=== PATIENT | female | born 1950 | race Caucasian/White ===

== ENCOUNTER 2019-04-26 18:32 | Inpatient (IN) | payer MEDICARE, MEDICAID ==
[~2019-04-26] VITALS: Ht 160 cm; Wt 101.2 kg
[2019-04-26 20:55] LABS: BASOPHILS % 0.8 % (0.0-2.0); EOSINOPHILS % 2.7 % (0.0-5.0); HEMATOCRIT. 37.8 % (36.0-48.0); HEMOGLOBIN. 12.8 g/dL (12.0-16.0); LYMPHOCYTES % 22.8 % (20.0-50.0); MEAN CORPUSCULAR HEMOGLOBIN 30.1 pg (28.0-32.0); MONOCYTES % 5.5 % (2.0-8.0); NEUTROPHILS % 68.2 % (40.0-76.0); RED BLOOD CELL COUNT 4.25 mill/uL (4.2-5.4); RED CELL DISTRIBUTION WIDTH 14.6 % (11.6-14.6)
[2019-04-26 21:12] LABS: MEAN PLATELET VOLUME 8.9 fl (7.4-10.4); PLATELET 485 x1000/uL (130-400)
[2019-04-26 21:44] LABS: CHLORIDE 111 mEq/L (98-107)
[2019-04-26 22:39] VITALS: BP 159/52
[2019-04-26] MEDS ORDERED: AMLO10TA80 PO (23:08)
[2019-04-26] MEDS ORDERED: BUME1TAB8 PO (23:08)
[2019-04-26] MEDS ORDERED: CLOP75TA33 PO (23:08)
[2019-04-26] MEDS ORDERED: LINA5TAB PO (23:08)
[2019-04-26] MEDS ORDERED: DEXTROSE 50% WATER 50ML SYRINGE IV PRN (23:30)
[2019-04-27] VITALS: BP 103/58
[2019-04-27 04:00] VITALS: BP 136/57
[2019-04-27] MEDS: BLOOD SUGAR DIAGNOSTIC STRIP TEST SCH ×4 (06:28→22:18)
[2019-04-27] MEDS: INSULIN LISPRO 100 UNITS/ML SUBCUT SCH ×4 (06:28→22:18)
[2019-04-27 06:40] LABS: PROTHROMBIN TIME 10.3 sec (9.6-11.0)
[2019-04-27 06:50] LABS: EOSINOPHILS % 3.9 % (0.0-5.0); HEMATOCRIT. 35.1 % (36.0-48.0); HEMOGLOBIN. 11.6 g/dL (12.0-16.0); LYMPHOCYTES % 25.7 % (20.0-50.0); MEAN CORPUSCULAR HEMOGLOBIN 29.2 pg (28.0-32.0); MEAN CORPUSCULAR VOLUME 88.1 fL (81.0-99.0); MEAN PLATELET VOLUME 7.8 fl (7.4-10.4); MONOCYTES % 9.1 % (2.0-8.0); NEUTROPHILS % 60.3 % (40.0-76.0); PLATELET 339 x1000/uL (130-400); RED BLOOD CELL COUNT 3.98 mill/uL (4.2-5.4); RED CELL DISTRIBUTION WIDTH 14.3 % (11.6-14.6)
[2019-04-27 08:00] VITALS: BP 152/61
[2019-04-27] MEDS: AMLODIPINE 10MG TABLET PO SCH (09:03)
[2019-04-27] MEDS: LINAGLIPTIN 5MG TABLET PO SCH (09:03)
[2019-04-27] MEDS: BUMETANIDE 1MG TABLET PO SCH (09:03)
[2019-04-27 12:00] VITALS: BP 117/50
[2019-04-27] MEDS: LEVOFLOXACIN 500MG PREMIX 100 ML IV SCH (13:25)
[2019-04-27 16:00] VITALS: BP 124/41
[2019-04-27] MEDS ORDERED: LACTULOSE 20G/30ML UDC PO PRN (16:00)
[2019-04-27] MEDS ORDERED: LORAZEPAM 2MG/ML CPJ IV PRN (16:00)
[2019-04-27] MEDS ORDERED: HYDRALAZINE 20MG/ML VIAL IV PRN (16:00)
[2019-04-27] MEDS ORDERED: ONDANSETRON HCL 4MG/2ML INJ IV PRN (16:00)
[2019-04-27] MEDS ORDERED: DIPHENHYDRAMINE 50MG/ML VIAL IV PRN (16:00)
[2019-04-27 16:31] LABS: BG BASE EXCESS -5.4 mmol/L (-2.0-2.0); BG CARBOXYHEMOGLOBIN 0.1 % (0.5-1.5); BG DEOXYHEMOGLOBIN 4.7 % (0.0-5.0); BG FRACTION INSPIRED OXYGEN 21; BG HCO3 ACT 18.8 mmol/L (22.0-26.0); BG METHEMOGLOBIN 0.2 % (0.0-1.5); BG OXYGEN SATURATION 95.3 % (92.0-98.5); BG PCO2 32.5 mmHg (35.0-45.0); BG PH 7.379 (7.350-7.450); BG PO2 79.1 mmHg (75.0-100.0); BG SAMPLE SITE RIGHT RADIAL; BG TOTAL HEMOGLOBIN 12.3 g/dL (12.0-18.0); BG VENT MODE ROOM AIR
[2019-04-27 20:00] VITALS: BP 128/42
[2019-04-28] VITALS (35 sets, daily range): BP systolic 107–169; BP diastolic 36–73
[2019-04-28] MEDS: DEXT 5%/0.45% NACL 1000ML 1,000 ML IV SCH ×2 (00:58→17:23)
[2019-04-28 06:55] LABS: HEMATOCRIT 33.7 % (36.0-48.0); HEMOGLOBIN 11.4 g/dL (12.0-16.0); MEAN CORPUSCULAR HEMOGLOBIN 29.7 pg (28.0-32.0); MEAN CORPUSCULAR VOLUME 88.2 fL (81.0-99.0); PLATELET 305 x1000/uL (130-400); RED BLOOD CELL COUNT 3.82 mill/uL (4.2-5.4); RED CELL DISTRIBUTION WIDTH 14.2 % (11.6-14.6)
[2019-04-28] MEDS: INSULIN LISPRO 100 UNITS/ML SUBCUT SCH ×4 (07:00→20:27)
[2019-04-28] MEDS: BLOOD SUGAR DIAGNOSTIC STRIP TEST SCH ×5 (07:00→20:25)
[2019-04-28 07:11] LABS: T4 FREE 1.25 ng/dL (0.76-1.46)
[2019-04-28] MEDS ORDERED: TALC 3 GM VIAL IX SCH ×2 (08:00)
[2019-04-28] MEDS: FAMOTIDINE 20MG/2ML VIAL IV SCH (08:57)
[2019-04-28] MEDS: LINAGLIPTIN 5MG TABLET PO SCH (08:58)
[2019-04-28] MEDS: BUMETANIDE 1MG TABLET PO SCH (08:58)
[2019-04-28] MEDS: AMLODIPINE 10MG TABLET PO SCH (08:58)
[2019-04-28] MEDS ORDERED: TETRACAINE/BENZOCAINE/BUTAMBEN 20 GM SPRAY MM ONE (09:51)
[2019-04-28] MEDS ORDERED: BUPIVACAINE/EPINEPH/PF 0.25%/0.0005 10ML ONE (09:52)
[2019-04-28] MEDS ORDERED: BACITRACIN 50,000 UNITS/VIAL ONE ×2 (09:52→10:24)
[2019-04-28] MEDS ORDERED: NORMAL SALINE 0.9% 10 ML SYR ONE (09:52)
[2019-04-28 10:01] LABS: CLARITY URINE CLEAR (CLEAR); COLOR URINE YELLOW (YELLOW); KETONES URINE NEGATIVE (NEGATIVE); LEUKOCYTE ESTERASE URINE NEGATIVE (NEGATIVE); NITRITE URINE NEGATIVE (NEGATIVE); OCCULT BLOOD URINE NEGATIVE (NEGATIVE); PH URINE 5.5 (4.5-8.0); PROTEIN URINE NEGATIVE (NEGATIVE); SPECIFIC GRAVITY URINE 1.012 (1.005-1.030); UROBILINOGEN URINE 0.2 E.U./dL (0.2-1.0)
[2019-04-28] MEDS ORDERED: SKIN ADHESIVE 0.7 GM EA TOP ONE (10:20)
[2019-04-28] MEDS ORDERED: BACITRACIN 15GM TUBE TOP ONE (10:25)
[2019-04-28] MEDS ORDERED: PROPOFOL 200MG/20ML VIAL IV ONE (11:37)
[2019-04-28] MEDS ORDERED: ROCURONIUM BROMIDE 10MG/ML VIAL 5ML IV ONE (11:37)
[2019-04-28] MEDS ORDERED: MIDAZOLAM HCL 2 MG/2 ML VIAL ONE (11:37)
[2019-04-28] MEDS ORDERED: FENTANYL CITRATE/PF 50MCG/ML 2ML VIAL ONE (11:37)
[2019-04-28] MEDS ORDERED: ONDANSETRON HCL 4MG/2ML INJ ONE (11:38)
[2019-04-28] MEDS ORDERED: LIDOCAINE HCL/PF 1% 10 MG/ML 5ML VIAL ONE (11:38)
[2019-04-28] MEDS ORDERED: METOCLOPRAMIDE HCL 10MG/2ML VIAL ONE (11:38)
[2019-04-28] MEDS ORDERED: SUCCINYLCHOLINE CHLORIDE 200MG/10ML IV ONE (11:38)
[2019-04-28] MEDS ORDERED: GLYCOPYRROLATE 0.2 MG/ML 2ML VIAL ONE (13:43)
[2019-04-28] MEDS: MAGNESIUM HYDROXIDE 400MG/5ML 30ML UDC PO SCH ×3 (14:00→22:42)
[2019-04-28] MEDS ORDERED: ONDANSETRON HCL 4MG/2ML INJ IV PRN (14:30)
[2019-04-28] MEDS ORDERED: FENTANYL CITRATE/PF 50MCG/ML 2ML VIAL IV PRN (14:30)
[2019-04-28] MEDS ORDERED: SODIUM CHLORIDE 0.9% 500 ML IV PRN (14:33)
[2019-04-28] MEDS ORDERED: ACETAMINOPHEN 325MG TABLET PO PRN (14:45)
[2019-04-28] MEDS ORDERED: OXYCODONE HCL/ACETAMINOPHEN 5/325MG TABLET PO PRN ×2 (14:45)
[2019-04-28] MEDS: HYDROMORPHONE HCL/PF 2MG/ML CPJ IV PRN ×2 (15:08→15:42)
[2019-04-28 15:23] LABS: BG BASE EXCESS -8.2 mmol/L (-2.0-2.0); BG CARBOXYHEMOGLOBIN 0.3 % (0.5-1.5); BG DEOXYHEMOGLOBIN 1.4 % (0.0-5.0); BG FRACTION INSPIRED OXYGEN 85; BG HCO3 ACT 17.9 mmol/L (22.0-26.0); BG METHEMOGLOBIN 0.3 % (0.0-1.5); BG OXYGEN SATURATION 98.6 % (92.0-98.5); BG PCO2 38.7 mmHg (35.0-45.0); BG PH 7.283 (7.350-7.450); BG PO2 167.7 mmHg (75.0-100.0); BG SAMPLE SITE A-LINE; BG TOTAL HEMOGLOBIN 11.2 g/dL (12.0-18.0); BG VENT MODE MASK - SIMPLE
[2019-04-28] MEDS ORDERED: CEFAZOLIN 1000MG PREMIX 50 ML IV SCH (16:00)
[2019-04-28] MEDS: DOCUSATE SODIUM 100MG CAPSULE PO SCH (16:54)
[2019-04-28] MEDS ORDERED: SODIUM BICARBONATE 8.4% 1 MEQ/ML 50ML SYR IV NR ×2 (17:07→19:00)
[2019-04-28] MEDS: IPRATROPIUM/ALBUTEROL 0.5-3(2.5)MG/3ML NEB HHN SCH ×2 (17:12→21:39)
[2019-04-28 18:47] LABS: BG BASE EXCESS -8.5 mmol/L (-2.0-2.0); BG CARBOXYHEMOGLOBIN 0.3 % (0.5-1.5); BG DEOXYHEMOGLOBIN 3.9 % (0.0-5.0); BG FRACTION INSPIRED OXYGEN 28; BG HCO3 ACT 16.8 mmol/L (22.0-26.0); BG METHEMOGLOBIN 0.3 % (0.0-1.5); BG OXYGEN SATURATION 96.1 % (92.0-98.5); BG OXYHEMOGLOBIN 95.5 % (94.0-97.0); BG PH 7.312 (7.350-7.450); BG PO2 89.9 mmHg (75.0-100.0); BG SAMPLE SITE A-LINE; BG TOTAL HEMOGLOBIN 10.8 g/dL (12.0-18.0); BG VENT MODE NASAL CANNULA
[2019-04-28] MEDS: CEFAZOLIN 1000MG PREMIX 50 ML IV SCH (20:28)
[2019-04-29] VITALS (70 sets, daily range): BP systolic 121–156; BP diastolic 43–96
[2019-04-29] MEDS: IPRATROPIUM/ALBUTEROL 0.5-3(2.5)MG/3ML NEB HHN SCH ×6 (00:09→20:43)
[2019-04-29] MEDS: MORPHINE SULFATE 2 MG/ML CPJ (NOT FOR IM USE) IV PRN ×4 (01:57→14:28)
[2019-04-29] MEDS: MAGNESIUM HYDROXIDE 400MG/5ML 30ML UDC PO SCH ×4 (02:48→13:58)
[2019-04-29] MEDS: CEFAZOLIN 1000MG PREMIX 50 ML IV SCH ×3 (03:21→19:53)
[2019-04-29 06:38] LABS: BASOPHILS % 0.2 % (0.0-2.0); HEMATOCRIT. 31.3 % (36.0-48.0); HEMOGLOBIN. 10.3 g/dL (12.0-16.0); MEAN CORPUSCULAR HEMOGLOBIN 29.3 pg (28.0-32.0); MEAN CORPUSCULAR VOLUME 88.9 fL (81.0-99.0); MEAN PLATELET VOLUME 8.2 fl (7.4-10.4); MONOCYTES % 7.6 % (2.0-8.0); NEUTROPHILS % 84.2 % (40.0-76.0); PLATELET 344 x1000/uL (130-400); RED BLOOD CELL COUNT 3.52 mill/uL (4.2-5.4); RED CELL DISTRIBUTION WIDTH 14.3 % (11.6-14.6)
[2019-04-29] MEDS: BLOOD SUGAR DIAGNOSTIC STRIP TEST SCH ×4 (08:19→21:16)
[2019-04-29] MEDS: DEXT 5%/0.45% NACL 1000ML 1,000 ML IV SCH (08:31)
[2019-04-29] MEDS: DOCUSATE SODIUM 100MG CAPSULE PO SCH ×2 (08:31→17:51)
[2019-04-29] MEDS: INSULIN LISPRO 100 UNITS/ML SUBCUT SCH ×4 (08:31→21:19)
[2019-04-29] MEDS: AMLODIPINE 10MG TABLET PO SCH (08:31)
[2019-04-29] MEDS: FAMOTIDINE 20MG/2ML VIAL IV SCH (08:31)
[2019-04-29] MEDS: LINAGLIPTIN 5MG TABLET PO SCH (08:31)
[2019-04-29] MEDS: ONDANSETRON HCL 4MG/2ML INJ IV PRN ×2 (08:45→13:58)
[2019-04-29] MEDS: BUMETANIDE 1MG TABLET PO SCH (10:31)
[2019-04-29] MEDS: LEVOFLOXACIN 500MG PREMIX 100 ML IV SCH (12:18)
[2019-04-30] VITALS (48 sets, daily range): BP systolic 90–158; BP diastolic 41–77
[2019-04-30] MEDS: IPRATROPIUM/ALBUTEROL 0.5-3(2.5)MG/3ML NEB HHN SCH ×6 (00:32→20:06)
[2019-04-30] MEDS: DEXT 5%/0.45% NACL 1000ML 1,000 ML IV SCH ×2 (02:00→18:09)
[2019-04-30] MEDS: MORPHINE SULFATE 2 MG/ML CPJ (NOT FOR IM USE) IV PRN ×2 (03:43→15:30)
[2019-04-30] MEDS: CEFAZOLIN 1000MG PREMIX 50 ML IV SCH ×3 (03:43→20:15)
[2019-04-30] MEDS: BLOOD SUGAR DIAGNOSTIC STRIP TEST SCH ×4 (08:12→21:47)
[2019-04-30] MEDS: LINAGLIPTIN 5MG TABLET PO SCH (08:32)
[2019-04-30] MEDS: FAMOTIDINE 20MG/2ML VIAL IV SCH (08:32)
[2019-04-30] MEDS: AMLODIPINE 10MG TABLET PO SCH (08:35)
[2019-04-30] MEDS: BUMETANIDE 1MG TABLET PO SCH (08:35)
[2019-04-30] MEDS: DOCUSATE SODIUM 100MG CAPSULE PO SCH ×2 (08:35→16:09)
[2019-04-30] MEDS: INSULIN LISPRO 100 UNITS/ML SUBCUT SCH ×4 (08:35→21:47)
[2019-04-30 10:56] LABS: HEMATOCRIT. 22.5 % (36.0-48.0); HEMOGLOBIN. 7.5 g/dL (12.0-16.0); MEAN CORPUSCULAR HEMOGLOBIN 29.3 pg (28.0-32.0); PLATELET 257 x1000/uL (130-400); RED BLOOD CELL COUNT 2.56 mill/uL (4.2-5.4); RED CELL DISTRIBUTION WIDTH 14.1 % (11.6-14.6)
[2019-04-30 11:39] LABS: PLATELET ESTIMATE NORMAL
[2019-04-30 13:17] LABS: BASOPHILS % 0.1 % (0.0-2.0); EOSINOPHILS % 0.2 % (0.0-5.0); HEMATOCRIT. 23.6 % (36.0-48.0); HEMOGLOBIN. 7.8 g/dL (12.0-16.0); LYMPHOCYTES % 8.9 % (20.0-50.0); MEAN CORPUSCULAR HEMOGLOBIN 29.3 pg (28.0-32.0); MEAN CORPUSCULAR VOLUME 88.8 fL (81.0-99.0); MONOCYTES % 5.8 % (2.0-8.0); PLATELET 269 x1000/uL (130-400); RED BLOOD CELL COUNT 2.65 mill/uL (4.2-5.4); RED CELL DISTRIBUTION WIDTH 14.2 % (11.6-14.6)
[2019-04-30] MEDS ORDERED: DIATR MEGLU/DIATRIZOATE SOLN 30ML PO SCH (14:45)
[2019-05-01] VITALS (29 sets, daily range): BP systolic 103–151; BP diastolic 41–65
[2019-05-01] MEDS: IPRATROPIUM/ALBUTEROL 0.5-3(2.5)MG/3ML NEB HHN SCH ×6 (00:18→20:43)
[2019-05-01] MEDS: CEFAZOLIN 1000MG PREMIX 50 ML IV SCH ×2 (04:03→12:03)
[2019-05-01] MEDS: MORPHINE SULFATE 2 MG/ML CPJ (NOT FOR IM USE) IV PRN ×4 (04:03→22:31)
[2019-05-01 05:08] LABS: HEMATOCRIT 22.8 % (36.0-48.0); HEMOGLOBIN 7.7 g/dL (12.0-16.0); MEAN CORPUSCULAR HEMOGLOBIN 29.8 pg (28.0-32.0); MEAN CORPUSCULAR VOLUME 88.3 fL (81.0-99.0); PLATELET 270 x1000/uL (130-400); RED BLOOD CELL COUNT 2.58 mill/uL (4.2-5.4); RED CELL DISTRIBUTION WIDTH 14.1 % (11.6-14.6)
[2019-05-01] MEDS: BLOOD SUGAR DIAGNOSTIC STRIP TEST SCH ×3 (08:08→21:21)
[2019-05-01] MEDS: INSULIN LISPRO 100 UNITS/ML SUBCUT SCH ×3 (08:08→21:32)
[2019-05-01] MEDS: AMLODIPINE 10MG TABLET PO SCH (08:37)
[2019-05-01] MEDS: FAMOTIDINE 20MG/2ML VIAL IV SCH (08:37)
[2019-05-01] MEDS: LINAGLIPTIN 5MG TABLET PO SCH (08:37)
[2019-05-01] MEDS: BUMETANIDE 1MG TABLET PO SCH (08:37)
[2019-05-01] MEDS: DOCUSATE SODIUM 100MG CAPSULE PO SCH ×2 (09:00→16:50)
[2019-05-01] MEDS: DEXT 5%/0.45% NACL 1000ML 1,000 ML IV SCH (12:03)
[2019-05-01] MEDS: LEVOFLOXACIN 500MG PREMIX 100 ML IV SCH (12:36)
[2019-05-02] VITALS (12 sets, daily range): BP systolic 101–147; BP diastolic 33–65
[2019-05-02] MEDS: IPRATROPIUM/ALBUTEROL 0.5-3(2.5)MG/3ML NEB HHN SCH ×6 (01:26→20:53)
[2019-05-02] MEDS: MORPHINE SULFATE 2 MG/ML CPJ (NOT FOR IM USE) IV PRN ×2 (03:05→12:49)
[2019-05-02] MEDS: DEXT 5%/0.45% NACL 1000ML 1,000 ML IV SCH ×2 (04:00→21:34)
[2019-05-02 05:55] LABS: CHLORIDE 104 mEq/L (98-107)
[2019-05-02 06:02] LABS: HEMATOCRIT 23.3 % (36.0-48.0); HEMOGLOBIN 7.6 g/dL (12.0-16.0); MEAN CORPUSCULAR HEMOGLOBIN 29.3 pg (28.0-32.0); MEAN CORPUSCULAR VOLUME 89.3 fL (81.0-99.0); RED BLOOD CELL COUNT 2.61 mill/uL (4.2-5.4); RED CELL DISTRIBUTION WIDTH 14.1 % (11.6-14.6)
[2019-05-02] MEDS: ONDANSETRON HCL 4MG/2ML INJ IV PRN ×2 (06:23→09:28)
[2019-05-02] MEDS: INSULIN LISPRO 100 UNITS/ML SUBCUT SCH ×4 (06:47→21:00)
[2019-05-02] MEDS: BLOOD SUGAR DIAGNOSTIC STRIP TEST SCH ×4 (06:47→21:14)
[2019-05-02] MEDS: FAMOTIDINE 20MG/2ML VIAL IV SCH (08:45)
[2019-05-02] MEDS: DOCUSATE SODIUM 100MG CAPSULE PO SCH ×2 (08:46→17:45)
[2019-05-02] MEDS: LINAGLIPTIN 5MG TABLET PO SCH (08:47)
[2019-05-02] MEDS: AMLODIPINE 10MG TABLET PO SCH (08:47)
[2019-05-02] MEDS: BUMETANIDE 1MG TABLET PO SCH (08:47)
[2019-05-02 09:26] LABS: PLATELET 254 x1000/uL (130-400)
[2019-05-02] MEDS ORDERED: LEVOFLOXACIN 500MG TABLET PO SCH (11:00)
[2019-05-03] VITALS (13 sets, daily range): BP systolic 106–138; BP diastolic 44–72
[2019-05-03] MEDS: IPRATROPIUM/ALBUTEROL 0.5-3(2.5)MG/3ML NEB HHN SCH ×6 (00:09→20:56)
[2019-05-03] MEDS: MORPHINE SULFATE 2 MG/ML CPJ (NOT FOR IM USE) IV PRN ×2 (00:37→12:35)
[2019-05-03 06:10] LABS: HEMOGLOBIN 7.6 g/dL (12.0-16.0); MEAN CORPUSCULAR HEMOGLOBIN 29.4 pg (28.0-32.0); MEAN CORPUSCULAR VOLUME 88.9 fL (81.0-99.0); PLATELET 287 x1000/uL (130-400); RED BLOOD CELL COUNT 2.58 mill/uL (4.2-5.4); RED CELL DISTRIBUTION WIDTH 14.1 % (11.6-14.6)
[2019-05-03] MEDS: BLOOD SUGAR DIAGNOSTIC STRIP TEST SCH ×4 (06:34→20:22)
[2019-05-03] MEDS: INSULIN LISPRO 100 UNITS/ML SUBCUT SCH ×4 (07:20→20:22)
[2019-05-03] MEDS: BUMETANIDE 1MG TABLET PO SCH (08:10)
[2019-05-03] MEDS: FAMOTIDINE 20MG/2ML VIAL IV SCH (08:10)
[2019-05-03] MEDS: AMLODIPINE 10MG TABLET PO SCH (08:10)
[2019-05-03] MEDS: DOCUSATE SODIUM 100MG CAPSULE PO SCH ×2 (08:10→16:48)
[2019-05-03] MEDS: LINAGLIPTIN 5MG TABLET PO SCH (08:10)
[2019-05-03] MEDS ORDERED: LEVOFLOXACIN 250MG TABLET PO SCH (11:00)
[2019-05-03] MEDS: SODIUM CHLORIDE 0.9% 1,000 ML IV SCH (12:26)
[2019-05-03] MEDS: ACETAMINOPHEN 325MG TABLET PO PRN (20:50)
[2019-05-04] VITALS (13 sets, daily range): BP systolic 113–167; BP diastolic 45–71
[2019-05-04] MEDS: IPRATROPIUM/ALBUTEROL 0.5-3(2.5)MG/3ML NEB HHN SCH ×6 (00:39→21:37)
[2019-05-04] MEDS: SODIUM CHLORIDE 0.9% 1,000 ML IV SCH ×3 (04:17→16:04)
[2019-05-04 05:58] LABS: HEMATOCRIT 22.9 % (36.0-48.0); HEMOGLOBIN 7.6 g/dL (12.0-16.0); MEAN CORPUSCULAR HEMOGLOBIN 29.6 pg (28.0-32.0); MEAN CORPUSCULAR VOLUME 88.9 fL (81.0-99.0); PLATELET 312 x1000/uL (130-400); RED BLOOD CELL COUNT 2.57 mill/uL (4.2-5.4); RED CELL DISTRIBUTION WIDTH 14.4 % (11.6-14.6)
[2019-05-04] MEDS: BLOOD SUGAR DIAGNOSTIC STRIP TEST SCH ×4 (06:36→20:49)
[2019-05-04] MEDS: INSULIN LISPRO 100 UNITS/ML SUBCUT SCH ×4 (07:10→20:49)
[2019-05-04] MEDS: BUMETANIDE 1MG TABLET PO SCH (08:16)
[2019-05-04] MEDS: FAMOTIDINE 20MG/2ML VIAL IV SCH (08:16)
[2019-05-04] MEDS: DOCUSATE SODIUM 100MG CAPSULE PO SCH ×2 (08:16→17:01)
[2019-05-04] MEDS: LINAGLIPTIN 5MG TABLET PO SCH (08:16)
[2019-05-04] MEDS: AMLODIPINE 10MG TABLET PO SCH (08:18)
[2019-05-04 11:57] LABS: CLARITY URINE CLEAR (CLEAR); COLOR URINE YELLOW (YELLOW); KETONES URINE NEGATIVE (NEGATIVE); LEUKOCYTE ESTERASE URINE TRACE (NEGATIVE); NITRITE URINE NEGATIVE (NEGATIVE); OCCULT BLOOD URINE NEGATIVE (NEGATIVE); PROTEIN URINE NEGATIVE (NEGATIVE); SPECIFIC GRAVITY URINE 1.006 (1.005-1.030); UROBILINOGEN URINE 0.2 E.U./dL (0.2-1.0)
[2019-05-04] MEDS: ACETAMINOPHEN 325MG TABLET PO PRN (17:01)
[2019-05-05] VITALS (15 sets, daily range): BP systolic 99–156; BP diastolic 36–63
[2019-05-05] MEDS: IPRATROPIUM/ALBUTEROL 0.5-3(2.5)MG/3ML NEB HHN SCH ×7 (00:20→19:55)
[2019-05-05 05:18] LABS: MEAN CORPUSCULAR HEMOGLOBIN 29.3 pg (28.0-32.0); MEAN CORPUSCULAR VOLUME 88.2 fL (81.0-99.0); PLATELET 349 x1000/uL (130-400); RED BLOOD CELL COUNT 3.06 mill/uL (4.2-5.4)
[2019-05-05] MEDS: INSULIN LISPRO 100 UNITS/ML SUBCUT SCH ×4 (07:20→20:52)
[2019-05-05] MEDS: BLOOD SUGAR DIAGNOSTIC STRIP TEST SCH ×4 (07:21→20:52)
[2019-05-05] MEDS: DOCUSATE SODIUM 100MG CAPSULE PO SCH ×2 (08:41→16:28)
[2019-05-05] MEDS: LINAGLIPTIN 5MG TABLET PO SCH (08:41)
[2019-05-05] MEDS: BUMETANIDE 1MG TABLET PO SCH (08:41)
[2019-05-05] MEDS: FAMOTIDINE 20MG/2ML VIAL IV SCH (08:41)
[2019-05-05] MEDS: AMLODIPINE 10MG TABLET PO SCH (08:41)
[2019-05-05] MEDS: ACETAMINOPHEN 325MG TABLET PO PRN (11:41)
[2019-05-05] MEDS: SODIUM CHLORIDE 0.9% 1,000 ML IV SCH (11:44)
[2019-05-06] VITALS: BP 134/60
[2019-05-06 04:00] VITALS: BP 134/50
[2019-05-06] MEDS: IPRATROPIUM/ALBUTEROL 0.5-3(2.5)MG/3ML NEB HHN SCH ×5 (05:10→20:23)
[2019-05-06 06:44] LABS: HEMATOCRIT 26.6 % (36.0-48.0); HEMOGLOBIN 9.1 g/dL (12.0-16.0); MEAN CORPUSCULAR HEMOGLOBIN 30.1 pg (28.0-32.0); MEAN CORPUSCULAR VOLUME 87.5 fL (81.0-99.0); PLATELET 404 x1000/uL (130-400); RED BLOOD CELL COUNT 3.04 mill/uL (4.2-5.4); RED CELL DISTRIBUTION WIDTH 14.6 % (11.6-14.6)
[2019-05-06] MEDS: BLOOD SUGAR DIAGNOSTIC STRIP TEST SCH ×4 (07:08→20:25)
[2019-05-06] MEDS: INSULIN LISPRO 100 UNITS/ML SUBCUT SCH ×4 (07:09→20:25)
[2019-05-06 08:00] VITALS: BP 141/59
[2019-05-06] MEDS: AMLODIPINE 10MG TABLET PO SCH (09:54)
[2019-05-06] MEDS: FAMOTIDINE 20MG/2ML VIAL IV SCH (09:54)
[2019-05-06] MEDS: DOCUSATE SODIUM 100MG CAPSULE PO SCH ×2 (09:54→17:42)
[2019-05-06] MEDS: LINAGLIPTIN 5MG TABLET PO SCH (09:54)
[2019-05-06 11:10] LABS: BG BASE EXCESS -8.1 mmol/L (-2.0-2.0); BG CARBOXYHEMOGLOBIN 0.8 % (0.5-1.5); BG DEOXYHEMOGLOBIN 8.5 % (0.0-5.0); BG FRACTION INSPIRED OXYGEN 23; BG HCO3 ACT 16.6 mmol/L (22.0-26.0); BG METHEMOGLOBIN 0.2 % (0.0-1.5); BG OXYGEN SATURATION 91.4 % (92.0-98.5); BG OXYHEMOGLOBIN 90.5 % (94.0-97.0); BG PCO2 30.9 mmHg (35.0-45.0); BG PH 7.347 (7.350-7.450); BG PO2 61.2 mmHg (75.0-100.0); BG SAMPLE SITE RIGHT BRACHIAL; BG TOTAL HEMOGLOBIN 10.3 g/dL (12.0-18.0); BG VENT MODE ROOM AIR
[2019-05-06 12:00] VITALS: BP 122/45
[2019-05-06] MEDS: PIPERACILLIN/TAZOBACTAM 2.25 G in DEXTROSE 5% WATER 50 ML IV SCH ×3 (13:26→23:45)
[2019-05-06] MEDS: CITRIC ACID/SODIUM CITRATE SOLN 15ML UDC PO SCH ×2 (13:31→17:42)
[2019-05-06] MEDS: ONDANSETRON HCL 4MG/2ML INJ IV PRN (14:00)
[2019-05-06 16:00] VITALS: BP 127/54
[2019-05-06] MEDS ORDERED: VANCOMYCIN 2,000 MG in DEXT 5% WATER 500 ML IV NR (18:00)
[2019-05-06 20:00] VITALS: BP 122/50
[2019-05-07] VITALS: BP 121/64
[2019-05-07] MEDS: IPRATROPIUM/ALBUTEROL 0.5-3(2.5)MG/3ML NEB HHN SCH ×6 (00:15→16:03)
[2019-05-07 04:00] VITALS: BP 120/49
[2019-05-07] MEDS: PIPERACILLIN/TAZOBACTAM 2.25 G in DEXTROSE 5% WATER 50 ML IV SCH ×3 (05:47→17:15)
[2019-05-07] MEDS: INSULIN LISPRO 100 UNITS/ML SUBCUT SCH ×4 (06:00→21:00)
[2019-05-07] MEDS: BLOOD SUGAR DIAGNOSTIC STRIP TEST SCH ×4 (06:00→21:12)
[2019-05-07 06:59] LABS: HEMATOCRIT 25.7 % (36.0-48.0); HEMOGLOBIN 8.6 g/dL (12.0-16.0); MEAN CORPUSCULAR HEMOGLOBIN 29.2 pg (28.0-32.0); MEAN CORPUSCULAR VOLUME 87.7 fL (81.0-99.0); PLATELET 375 x1000/uL (130-400); RED BLOOD CELL COUNT 2.93 mill/uL (4.2-5.4); RED CELL DISTRIBUTION WIDTH 14.4 % (11.6-14.6)
[2019-05-07 08:00] VITALS: BP 125/51
[2019-05-07] MEDS: AMLODIPINE 10MG TABLET PO SCH (08:56)
[2019-05-07] MEDS: LINAGLIPTIN 5MG TABLET PO SCH (08:56)
[2019-05-07] MEDS: CITRIC ACID/SODIUM CITRATE SOLN 15ML UDC PO SCH ×3 (08:56→17:15)
[2019-05-07] MEDS: DOCUSATE SODIUM 100MG CAPSULE PO SCH ×2 (08:56→17:15)
[2019-05-07] MEDS: FAMOTIDINE 20MG/2ML VIAL IV SCH (08:56)
[2019-05-07] MEDS ORDERED: BUMETANIDE 1MG TABLET PO SCH (10:00)
[2019-05-07 12:00] VITALS: BP 131/48
[2019-05-07 16:00] VITALS: BP 120/51
[2019-05-08] MEDS: PIPERACILLIN/TAZOBACTAM 2.25 G in DEXTROSE 5% WATER 50 ML IV SCH ×5 (00:59→23:49)
[2019-05-08] MEDS: IPRATROPIUM/ALBUTEROL 0.5-3(2.5)MG/3ML NEB HHN SCH ×5 (01:50→21:00)
[2019-05-08] MEDS: BLOOD SUGAR DIAGNOSTIC STRIP TEST SCH ×2 (06:00→12:18)
[2019-05-08] MEDS: INSULIN LISPRO 100 UNITS/ML SUBCUT SCH ×2 (06:37→12:15)
[2019-05-08 06:59] LABS: BASOPHILS % 0.5 % (0.0-2.0); EOSINOPHILS % 2.8 % (0.0-5.0); HEMATOCRIT. 24.8 % (36.0-48.0); HEMOGLOBIN. 8.3 g/dL (12.0-16.0); LYMPHOCYTES % 10.7 % (20.0-50.0); MEAN CORPUSCULAR HEMOGLOBIN 29.2 pg (28.0-32.0); MEAN CORPUSCULAR VOLUME 87.2 fL (81.0-99.0); MEAN PLATELET VOLUME 6.8 fl (7.4-10.4); MONOCYTES % 10.1 % (2.0-8.0); NEUTROPHILS % 75.9 % (40.0-76.0); PLATELET 370 x1000/uL (130-400); RED BLOOD CELL COUNT 2.85 mill/uL (4.2-5.4); RED CELL DISTRIBUTION WIDTH 14.7 % (11.6-14.6)
[2019-05-08 08:00] VITALS: BP 112/40
[2019-05-08] MEDS: FAMOTIDINE 20MG/2ML VIAL IV SCH (09:06)
[2019-05-08] MEDS: CITRIC ACID/SODIUM CITRATE SOLN 15ML UDC PO SCH ×3 (09:06→18:47)
[2019-05-08] MEDS: LINAGLIPTIN 5MG TABLET PO SCH (09:07)
[2019-05-08] MEDS: AMLODIPINE 10MG TABLET PO SCH (09:07)
[2019-05-08] MEDS: DOCUSATE SODIUM 100MG CAPSULE PO SCH ×2 (09:07→18:47)
[2019-05-08 12:00] VITALS: BP 125/47
[2019-05-08 16:00] VITALS: BP 119/49
[2019-05-08 20:00] VITALS: BP 136/58
[2019-05-09] VITALS: BP 120/44
[2019-05-09] MEDS: IPRATROPIUM/ALBUTEROL 0.5-3(2.5)MG/3ML NEB HHN SCH ×6 (00:56→21:03)
[2019-05-09 04:00] VITALS: BP 113/43
[2019-05-09] MEDS: PIPERACILLIN/TAZOBACTAM 2.25 G in DEXTROSE 5% WATER 50 ML IV SCH ×3 (05:47→21:33)
[2019-05-09 07:57] LABS: BASOPHILS % 0.6 % (0.0-2.0); EOSINOPHILS % 2.6 % (0.0-5.0); HEMATOCRIT. 25.3 % (36.0-48.0); HEMOGLOBIN. 8.4 g/dL (12.0-16.0); LYMPHOCYTES % 14.2 % (20.0-50.0); MEAN CORPUSCULAR HEMOGLOBIN 28.8 pg (28.0-32.0); MEAN CORPUSCULAR VOLUME 86.6 fL (81.0-99.0); MEAN PLATELET VOLUME 6.8 fl (7.4-10.4); MONOCYTES % 10.3 % (2.0-8.0); NEUTROPHILS % 72.3 % (40.0-76.0); PLATELET 371 x1000/uL (130-400); RED BLOOD CELL COUNT 2.92 mill/uL (4.2-5.4); RED CELL DISTRIBUTION WIDTH 14.9 % (11.6-14.6)
[2019-05-09 08:00] VITALS: BP 120/54
[2019-05-09] MEDS: FAMOTIDINE 20MG/2ML VIAL IV SCH (09:22)
[2019-05-09] MEDS: LINAGLIPTIN 5MG TABLET PO SCH (09:22)
[2019-05-09] MEDS: CITRIC ACID/SODIUM CITRATE SOLN 15ML UDC PO SCH ×3 (09:22→21:33)
[2019-05-09] MEDS: DOCUSATE SODIUM 100MG CAPSULE PO SCH ×2 (09:23→21:33)
[2019-05-09] MEDS: AMLODIPINE 10MG TABLET PO SCH (09:23)
[2019-05-09 12:00] VITALS: BP 131/47
[2019-05-09 16:00] VITALS: BP 119/45
[2019-05-09] MEDS ORDERED: ALBUMIN HUMAN 12.5GM/50ML (25%) IV NR (18:00)
[2019-05-09 18:42] LABS: CHLORIDE 106 mEq/L (98-107)
[2019-05-09 20:00] VITALS: BP 131/48
[2019-05-10] VITALS: BP 139/47
[2019-05-10] MEDS: PIPERACILLIN/TAZOBACTAM 2.25 G in DEXTROSE 5% WATER 50 ML IV SCH ×5 (01:24→23:53)
[2019-05-10 04:00] VITALS: BP 118/46
[2019-05-10] MEDS: IPRATROPIUM/ALBUTEROL 0.5-3(2.5)MG/3ML NEB HHN SCH ×5 (04:50→21:24)
[2019-05-10 06:28] LABS: BASOPHILS % 0.7 % (0.0-2.0); EOSINOPHILS % 2.2 % (0.0-5.0); HEMATOCRIT. 24.2 % (36.0-48.0); HEMOGLOBIN. 8.3 g/dL (12.0-16.0); LYMPHOCYTES % 11.7 % (20.0-50.0); MEAN CORPUSCULAR HEMOGLOBIN 29.5 pg (28.0-32.0); MEAN CORPUSCULAR VOLUME 86.3 fL (81.0-99.0); MEAN PLATELET VOLUME 6.7 fl (7.4-10.4); MONOCYTES % 7.2 % (2.0-8.0); NEUTROPHILS % 78.2 % (40.0-76.0); PLATELET 413 x1000/uL (130-400); RED BLOOD CELL COUNT 2.81 mill/uL (4.2-5.4)
[2019-05-10 08:00] VITALS: BP 137/50
[2019-05-10] MEDS: LINAGLIPTIN 5MG TABLET PO SCH (08:36)
[2019-05-10] MEDS: FAMOTIDINE 20MG/2ML VIAL IV SCH (08:36)
[2019-05-10] MEDS: DOCUSATE SODIUM 100MG CAPSULE PO SCH ×2 (08:36→17:58)
[2019-05-10] MEDS: CITRIC ACID/SODIUM CITRATE SOLN 15ML UDC PO SCH ×3 (08:36→17:57)
[2019-05-10] MEDS: AMLODIPINE 10MG TABLET PO SCH (09:00)
[2019-05-10] MEDS ORDERED: LIDOCAINE HCL 1% 20ML VIAL (Pyxis) INJ ONE (11:23)
[2019-05-10 11:55] VITALS: BP 133/50
[2019-05-10 15:29] LABS: HEMOGLOBIN 8.9 g/dL (12.0-16.0); MEAN CORPUSCULAR HEMOGLOBIN 28.4 pg (28.0-32.0); PLATELET 495 x1000/uL (130-400); RED BLOOD CELL COUNT 3.14 mill/uL (4.2-5.4); RED CELL DISTRIBUTION WIDTH 15.1 % (11.6-14.6)
[2019-05-10 15:59] LABS: HEPATITIS B SURFACE ANTIGEN NEGATIVE
[2019-05-10 16:00] VITALS: BP 136/54
[2019-05-10 16:29] LABS: HEPATITIS A AB IGM NEGATIVE (NEGATIVE)
[2019-05-10] MEDS: ACETAMINOPHEN 325MG TABLET PO PRN (16:59)
[2019-05-10 20:00] VITALS: BP 126/51
[2019-05-10] MEDS: EPOETIN ALFA 10000UNITS/ML VIAL SUBCUT NR (23:53)
[2019-05-11] VITALS: BP 134/51
[2019-05-11] MEDS: IPRATROPIUM/ALBUTEROL 0.5-3(2.5)MG/3ML NEB HHN SCH ×7 (01:13→20:22)
[2019-05-11 04:00] VITALS: BP 124/48
[2019-05-11] MEDS: PIPERACILLIN/TAZOBACTAM 2.25 G in DEXTROSE 5% WATER 50 ML IV SCH ×4 (06:46→23:32)
[2019-05-11 07:11] LABS: BASOPHILS % 0.3 % (0.0-2.0); EOSINOPHILS % 1.5 % (0.0-5.0); HEMATOCRIT. 23.6 % (36.0-48.0); HEMOGLOBIN. 7.9 g/dL (12.0-16.0); LYMPHOCYTES % 9.2 % (20.0-50.0); MEAN CORPUSCULAR HEMOGLOBIN 29.1 pg (28.0-32.0); MEAN CORPUSCULAR VOLUME 86.8 fL (81.0-99.0); MONOCYTES % 6.7 % (2.0-8.0); NEUTROPHILS % 82.3 % (40.0-76.0); PLATELET 381 x1000/uL (130-400); RED BLOOD CELL COUNT 2.72 mill/uL (4.2-5.4); RED CELL DISTRIBUTION WIDTH 15.1 % (11.6-14.6)
[2019-05-11 08:00] VITALS: BP 133/58
[2019-05-11] MEDS: DOCUSATE SODIUM 100MG CAPSULE PO SCH (08:39)
[2019-05-11] MEDS: CITRIC ACID/SODIUM CITRATE SOLN 15ML UDC PO SCH ×3 (08:39→17:44)
[2019-05-11] MEDS: FAMOTIDINE 20MG/2ML VIAL IV SCH (08:39)
[2019-05-11] MEDS: AMLODIPINE 10MG TABLET PO SCH (08:39)
[2019-05-11] MEDS: LINAGLIPTIN 5MG TABLET PO SCH (08:39)
[2019-05-11] MEDS ORDERED: FUROSEMIDE 40MG/4ML VIAL IVP NR (09:13)
[2019-05-11 12:00] VITALS: BP 128/74
[2019-05-11] MEDS ORDERED: CLONIDINE 0.1MG TABLET PO PRN (15:15)
[2019-05-11] MEDS ORDERED: LORAZEPAM 2MG/ML CPJ IV PRN (15:15)
[2019-05-11] MEDS ORDERED: HYDROCODONE/ACETAMINOPHEN 5/325MG TABLET PO PRN (15:15)
[2019-05-11] MEDS ORDERED: DEXTROSE 50% WATER 50ML SYRINGE IV PRN (15:30)
[2019-05-11 16:00] VITALS: BP 147/67
[2019-05-11] MEDS: BLOOD SUGAR DIAGNOSTIC STRIP TEST SCH ×2 (17:35→21:35)
[2019-05-11 20:00] VITALS: BP 98/44
[2019-05-11] MEDS: EPOETIN ALFA 10000UNITS/ML VIAL SUBCUT NR (21:35)
[2019-05-12] VITALS (11 sets, daily range): BP systolic 106–133; BP diastolic 34–68
[2019-05-12] MEDS: IPRATROPIUM/ALBUTEROL 0.5-3(2.5)MG/3ML NEB HHN SCH ×5 (03:48→17:30)
[2019-05-12] MEDS: PIPERACILLIN/TAZOBACTAM 2.25 G in DEXTROSE 5% WATER 50 ML IV SCH ×2 (05:01→12:00)
[2019-05-12 05:16] LABS: HIV SCREEN 4G Non Reactive (Non Reactive)
[2019-05-12 06:49] LABS: BASOPHILS % 0.8 % (0.0-2.0); EOSINOPHILS % 2.3 % (0.0-5.0); HEMATOCRIT. 22.3 % (36.0-48.0); HEMOGLOBIN. 7.5 g/dL (12.0-16.0); LYMPHOCYTES % 13.5 % (20.0-50.0); MEAN CORPUSCULAR HEMOGLOBIN 28.9 pg (28.0-32.0); MEAN CORPUSCULAR VOLUME 86.3 fL (81.0-99.0); MEAN PLATELET VOLUME 7.1 fl (7.4-10.4); MONOCYTES % 9.5 % (2.0-8.0); NEUTROPHILS % 73.9 % (40.0-76.0); PLATELET 417 x1000/uL (130-400); RED BLOOD CELL COUNT 2.59 mill/uL (4.2-5.4); RED CELL DISTRIBUTION WIDTH 14.7 % (11.6-14.6)
[2019-05-12] MEDS: BLOOD SUGAR DIAGNOSTIC STRIP TEST SCH ×3 (07:01→17:16)
[2019-05-12] MEDS ORDERED: FUROSEMIDE 40MG/4ML VIAL IVP SCH (09:00)
[2019-05-12] MEDS ORDERED: POTASSIUM CHLORIDE 20MEQ TABLET SR PO SCH (09:00)
[2019-05-12] MEDS: FAMOTIDINE 20MG/2ML VIAL IV SCH (09:26)
[2019-05-12] MEDS: AMLODIPINE 10MG TABLET PO SCH (09:26)
[2019-05-12] MEDS: LINAGLIPTIN 5MG TABLET PO SCH (09:26)
[2019-05-12] MEDS: CITRIC ACID/SODIUM CITRATE SOLN 15ML UDC PO SCH ×3 (09:26→17:42)
== END 2019-05-12 18:50 | disposition home health service (06) | DRG 710 ==
LOC: ER 18:32 → EDBD 18:32 → 5WST 21:27 → EDBEDREQ 21:29 → EDBEDREQTM 21:29 → ENRESERV 21:56 → CVICU 04-28 16:47 → 3WST 05-01 17:33 → 5WST 05-05 22:30 → 8WST 05-09 19:19
PROVIDERS: ADMIT Internal Medicine; ATTEND Internal Medicine
PROC: 0W9940Z Drainage of Right Pleural Cavity with Drainage Device, Percutaneous Endoscopic Approach (ICD-10-PCS; principal; 2019-04-28)
PROC: 0BNN4ZZ Release Right Pleura, Percutaneous Endoscopic Approach (ICD-10-PCS; 2019-04-28)
PROC: 3E0L4GC Introduction of Other Therapeutic Substance into Pleural Cavity, Percutaneous Endoscopic Approach (ICD-10-PCS; 2019-04-28)
PROC: 02HV33Z Insertion of Infusion Device into Superior Vena Cava, Percutaneous Approach (ICD-10-PCS; 2019-05-10)
PROC: B5181ZA Fluoroscopy of Superior Vena Cava using Low Osmolar Contrast, Guidance (ICD-10-PCS; 2019-05-10)
PROC: B548ZZA Ultrasonography of Superior Vena Cava, Guidance (ICD-10-PCS; 2019-05-10)
PROC: 5A1D70Z Performance of Urinary Filtration, Intermittent, Less than 6 Hours Per Day (ICD-10-PCS; 2019-05-10)
DX: A41.9 Sepsis, unspecified organism (principal); N17.0 Acute kidney failure with tubular necrosis; J96.00 Acute respiratory failure, unspecified whether with hypoxia or hypercapnia; J90 Pleural effusion, not elsewhere classified; J18.9 Pneumonia, unspecified organism; E87.2 Acidosis; E11.22 Type 2 diabetes mellitus with diabetic chronic kidney disease; I12.0 Hypertensive chronic kidney disease with stage 5 chronic kidney disease or end stage renal disease; C56.9 Malignant neoplasm of unspecified ovary; D64.9 Anemia, unspecified; E78.5 Hyperlipidemia, unspecified; E78.00 Pure hypercholesterolemia, unspecified; E87.6 Hypokalemia; E87.70 Fluid overload, unspecified; N18.6 End stage renal disease; Z85.89 Personal history of malignant neoplasm of other organs and systems; Z90.710 Acquired absence of both cervix and uterus; Z79.899 Other long term (current) drug therapy
CPT/HCPCS: 36415; 36600; 71045; 71250; 74176; 76770; 77001; 80048; 80061; 80202; 81003; 82375; 82378; 82805; 82962; 83036; 83615; 83880; 84439; 84443; 84484; 84550; 85027; 86304; 86705; 86709; 86803; 86850; 86900; 86920; 87070; 87075; 87116; 87340; 87389; 88108; 88312; 89055; 93005; 93306; 94618; 94640; 96374; 97110; 97116; 97162; 97166; 97530; 97535; 99285; C1752; J0171; J0330; J0690; J0885; J1170; J1200; J1815; J1940; J1956; J2250; J2270; J2405; J2543; J2704; J2765; J3010; J3370; J3490; J7030; J7060; J7620; P9016; P9047; Q9963

== ENCOUNTER 2021-04-09 08:06 | Inpatient (IN) | payer MEDICARE, MEDICAID ==
[~2021-04-09] VITALS: Ht 154.9 cm; Wt 85.3 kg
[~2021-04-09 08:06] MED LIST: AMLO10TA80 PO; CLOP75TA33 PO; FERR325T6 PO; FURO-152 PO; LINA5TAB PO
[2021-04-09] MEDS ORDERED: ONDANSETRON HCL 4MG/2ML INJ IV ONE (10:15)
[2021-04-09] MEDS ORDERED: CEFTRIAXONE 1 G PREMIX 50 ML IV ONE (10:30)
[2021-04-09] MEDS ORDERED: AZITHROMYCIN 500 MG in DEXT 5% WATER 250 ML IV ONE (10:30)
[2021-04-09] MEDS ORDERED: IPRATROPIUM BROMIDE (0.02%) 0.5MG/2.5ML NEB HHN STA (11:10)
[2021-04-09] MEDS ORDERED: ALBUTEROL (0.083%) 2.5MG/3ML NEB HHN STA (11:10)
[2021-04-09 11:27] LABS: PROTHROMBIN TIME 10.9 sec (9.6-11.0)
[2021-04-09 11:28] LABS: CHLORIDE 106 mEq/L (98-107)
[2021-04-09] MEDS ORDERED: ALBUTEROL (0.083%) 2.5MG/3ML NEB ONE (11:38)
[2021-04-09] MEDS ORDERED: IPRATROPIUM BROMIDE (0.02%) 0.5MG/2.5ML NEB ONE (11:39)
[2021-04-09] MEDS ORDERED: FUROSEMIDE 20MG/2ML VIAL IVP ONE (11:45)
[2021-04-09 11:55] LABS: BASOPHILS % 0.5 % (0.0-2.0); EOSINOPHILS % 1.2 % (0.0-5.0); HEMATOCRIT. 35.3 % (36.0-48.0); HEMOGLOBIN. 11.9 g/dL (12.0-16.0); MEAN CORPUSCULAR HEMOGLOBIN 28.4 pg (28.0-32.0); MEAN CORPUSCULAR VOLUME 84.2 fL (81.0-99.0); MEAN PLATELET VOLUME 7.4 fl (7.4-10.4); NEUTROPHILS % 76.3 % (40.0-76.0); PLATELET 441 x1000/uL (130-400); RED BLOOD CELL COUNT 4.19 mill/uL (4.2-5.4); RED CELL DISTRIBUTION WIDTH 15.1 % (11.6-14.6)
[2021-04-09] MEDS ORDERED: ACETAMINOPHEN 325MG TABLET PO PRN (14:45)
[2021-04-09] MEDS ORDERED: IPRATROPIUM/ALBUTEROL 0.5-3(2.5)MG/3ML NEB HHN PRN (14:45)
[2021-04-09] MEDS ORDERED: ONDANSETRON HCL 4MG/2ML INJ IV PRN (14:45)
[2021-04-09] MEDS ORDERED: PIPERACILLIN/TAZOBACTAM 2.25 G in DEXTROSE 5% WATER 50 ML IV SCH (16:00)
[2021-04-09] MEDS ORDERED: DEXTROSE 50% WATER 50ML SYRINGE IV PRN (21:00)
[2021-04-09] MEDS: ENOXAPARIN 30MG/0.3ML SYR SUBCUT SCH (21:40)
[2021-04-09] MEDS: INSULIN LISPRO 100 UNITS/ML SUBCUT SCH (21:40)
[2021-04-09] MEDS: BLOOD SUGAR DIAGNOSTIC STRIP TEST SCH (21:41)
[2021-04-09] MEDS: CLONIDINE 0.1MG TABLET PO PRN (21:42)
[2021-04-09] MEDS: PIPERACILLIN/TAZOBACTAM 2.25 G in DEXTROSE 5% WATER 50 ML IV SCH (23:13)
[2021-04-09] MEDS ORDERED: *PATIENT'S OWN MEDICATION STORAGE XX SCH (23:45)
[2021-04-10] VITALS (7 sets, daily range): BP systolic 101–167; BP diastolic 45–84
[2021-04-10] MEDS ORDERED: ATOR10TA69 PO (00:16)
[2021-04-10] MEDS ORDERED: FURO20TA4 PO (00:16)
[2021-04-10 00:28] LABS: CREATINE KINASE 110 IU/L (26-192)
[2021-04-10 00:29] LABS: CREATINE KINASE MB FRACTION 2.9 ng/mL (0.5-3.6)
[2021-04-10 06:15] LABS: BASOPHILS % 0.6 % (0.0-2.0); EOSINOPHILS % 2.5 % (0.0-5.0); HEMATOCRIT. 32.5 % (36.0-48.0); HEMOGLOBIN. 10.8 g/dL (12.0-16.0); LYMPHOCYTES % 13.3 % (20.0-50.0); MEAN CORPUSCULAR HEMOGLOBIN 27.9 pg (28.0-32.0); MEAN CORPUSCULAR VOLUME 84.1 fL (81.0-99.0); MEAN PLATELET VOLUME 7.7 fl (7.4-10.4); MONOCYTES % 8.8 % (2.0-8.0); NEUTROPHILS % 74.8 % (40.0-76.0); PLATELET 368 x1000/uL (130-400); RED BLOOD CELL COUNT 3.87 mill/uL (4.2-5.4); RED CELL DISTRIBUTION WIDTH 15.2 % (11.6-14.6)
[2021-04-10] MEDS: BLOOD SUGAR DIAGNOSTIC STRIP TEST SCH ×4 (06:26→21:00)
[2021-04-10] MEDS: PIPERACILLIN/TAZOBACTAM 2.25 G in DEXTROSE 5% WATER 50 ML IV SCH ×3 (06:27→21:17)
[2021-04-10 06:33] LABS: CHLORIDE 108 mEq/L (98-107)
[2021-04-10 06:40] LABS: LDL CHOLESTEROL 69 mg/dL (5-100)
[2021-04-10 06:41] LABS: CREATINE KINASE 98 IU/L (26-192); HDL CHOLESTEROL 49 mg/dL (40-59)
[2021-04-10 06:44] LABS: CREATINE KINASE MB FRACTION 3.1 ng/mL (0.5-3.6)
[2021-04-10] MEDS: INSULIN LISPRO 100 UNITS/ML SUBCUT SCH ×4 (07:40→21:00)
[2021-04-10 10:30] LABS: BG BASE EXCESS -5.8 mmol/L (-2.0-2.0); BG CARBOXYHEMOGLOBIN 0.3 % (0.5-1.5); BG DEOXYHEMOGLOBIN 4.2 % (0.0-5.0); BG HCO3 ACT 19.5 mmol/L (22.0-26.0); BG METHEMOGLOBIN 0.2 % (0.0-1.5); BG OXYGEN SATURATION 95.8 % (92.0-98.5); BG OXYHEMOGLOBIN 95.3 % (94.0-97.0); BG PCO2 37.5 mmHg (35.0-45.0); BG PH 7.334 (7.350-7.450); BG PO2 83.3 mmHg (75.0-100.0); BG SAMPLE SITE RIGHT RADIAL; BG TOTAL HEMOGLOBIN 11.6 g/dL (12.0-18.0); BG VENT MODE ROOM AIR
[2021-04-10 13:34] LABS: CREATINE KINASE 112 IU/L (26-192)
[2021-04-10] MEDS: ENOXAPARIN 30MG/0.3ML SYR SUBCUT SCH (15:00)
[2021-04-10] MEDS ORDERED: NALOXONE HCL 0.4MG/ML VIAL IV PRN (17:45)
[2021-04-10] MEDS: DILTIAZEM HCL 30MG TABLET PO SCH ×2 (18:20→21:18)
[2021-04-10] MEDS ORDERED: ALBUMIN HUMAN 25GM/100ML (25%) IV NR (20:00)
[2021-04-11] VITALS (21 sets, daily range): BP systolic 100–195; BP diastolic 46–75
[2021-04-11] MEDS: PIPERACILLIN/TAZOBACTAM 2.25 G in DEXTROSE 5% WATER 50 ML IV SCH ×3 (04:58→21:14)
[2021-04-11] MEDS: DILTIAZEM HCL 30MG TABLET PO SCH ×3 (04:59→21:13)
[2021-04-11 06:44] LABS: CHLORIDE 113 mEq/L (98-107)
[2021-04-11 06:47] LABS: BASOPHILS % 0.7 % (0.0-2.0); EOSINOPHILS % 4.7 % (0.0-5.0); HEMATOCRIT. 31.3 % (36.0-48.0); HEMOGLOBIN. 10.5 g/dL (12.0-16.0); LYMPHOCYTES % 17.1 % (20.0-50.0); MEAN CORPUSCULAR HEMOGLOBIN 28.2 pg (28.0-32.0); MEAN CORPUSCULAR VOLUME 84.4 fL (81.0-99.0); MEAN PLATELET VOLUME 7.6 fl (7.4-10.4); MONOCYTES % 8.3 % (2.0-8.0); NEUTROPHILS % 69.2 % (40.0-76.0); PLATELET 375 x1000/uL (130-400); RED BLOOD CELL COUNT 3.71 mill/uL (4.2-5.4); RED CELL DISTRIBUTION WIDTH 14.8 % (11.6-14.6)
[2021-04-11] MEDS: BLOOD SUGAR DIAGNOSTIC STRIP TEST SCH ×4 (06:49→20:19)
[2021-04-11 06:57] LABS: PHOSPHORUS 4.2 mg/dL (2.5-4.9)
[2021-04-11] MEDS: INSULIN LISPRO 100 UNITS/ML SUBCUT SCH ×4 (07:40→20:19)
[2021-04-11] MEDS ORDERED: LIDOCAINE HCL 1% 20ML VIAL (Pyxis) INJ ONE ×2 (13:56→14:52)
[2021-04-11] MEDS ORDERED: FENTANYL CITRATE/PF 50MCG/ML 2ML VIAL ONE (13:57)
[2021-04-11] MEDS ORDERED: FENTANYL CITRATE/PF 50MCG/ML 2ML VIAL IV NR (14:45)
[2021-04-11] MEDS: SODIUM CHLORIDE 0.9% 1,000 ML IV SCH (15:28)
[2021-04-11] MEDS: HYDROCODONE/ACETAMINOPHEN 5/325MG TABLET PO PRN ×2 (15:29→20:19)
[2021-04-11 15:49] LABS: CLARITY URINE CLEAR (CLEAR); COLOR URINE YELLOW (YELLOW); KETONES URINE NEGATIVE (NEGATIVE); LEUKOCYTE ESTERASE URINE 1+ (NEGATIVE); NITRITE URINE NEGATIVE (NEGATIVE); OCCULT BLOOD URINE TRACE (NEGATIVE); PH URINE 5.5 (4.5-8.0); PROTEIN URINE 2+ (NEGATIVE); SPECIFIC GRAVITY URINE 1.015 (1.005-1.030); UROBILINOGEN URINE 0.2 E.U./dL (0.2-1.0)
[2021-04-11] MEDS: CLONIDINE 0.1MG TABLET PO PRN (21:13)
[2021-04-12] VITALS (7 sets, daily range): BP systolic 124–141; BP diastolic 48–58
[2021-04-12] MEDS: PIPERACILLIN/TAZOBACTAM 2.25 G in DEXTROSE 5% WATER 50 ML IV SCH ×3 (05:20→22:14)
[2021-04-12] MEDS: HYDROCODONE/ACETAMINOPHEN 5/325MG TABLET PO PRN (05:21)
[2021-04-12] MEDS: DILTIAZEM HCL 30MG TABLET PO SCH ×3 (05:21→22:14)
[2021-04-12] MEDS: INSULIN LISPRO 100 UNITS/ML SUBCUT SCH ×4 (05:31→21:00)
[2021-04-12] MEDS: BLOOD SUGAR DIAGNOSTIC STRIP TEST SCH ×4 (05:31→21:00)
[2021-04-12 09:09] LABS: IMMUNOGLOBULIN A 274 mg/dL (87-352); IMMUNOGLOBULIN G 2207 mg/dL (586-1602); IMMUNOGLOBULIN M 75 mg/dL (26-217)
[2021-04-12 09:57] LABS: BASOPHILS % 0.5 % (0.0-2.0); EOSINOPHILS % 1.2 % (0.0-5.0); HEMATOCRIT. 34.1 % (36.0-48.0); HEMOGLOBIN. 11.4 g/dL (12.0-16.0); LYMPHOCYTES % 14.6 % (20.0-50.0); MEAN CORPUSCULAR HEMOGLOBIN 28.4 pg (28.0-32.0); MEAN CORPUSCULAR VOLUME 85.3 fL (81.0-99.0); MEAN PLATELET VOLUME 7.5 fl (7.4-10.4); MONOCYTES % 5.5 % (2.0-8.0); NEUTROPHILS % 78.2 % (40.0-76.0); PLATELET 435 x1000/uL (130-400); RED CELL DISTRIBUTION WIDTH 15.1 % (11.6-14.6)
[2021-04-12 10:19] LABS: PHOSPHORUS 5.5 mg/dL (2.5-4.9)
[2021-04-12] MEDS: SODIUM CHLORIDE 0.9% 1,000 ML IV SCH ×2 (15:03→19:05)
[2021-04-12] MEDS: VANCOMYCIN HCL 1000 MG/20 ML ORAL PO SCH (19:05)
[2021-04-13] VITALS: BP 138/53
[2021-04-13] MEDS: VANCOMYCIN HCL 1000 MG/20 ML ORAL PO SCH ×5 (00:21→23:43)
[2021-04-13 04:00] VITALS: BP 126/49
[2021-04-13] MEDS: SODIUM CHLORIDE 0.9% 1,000 ML IV SCH ×2 (05:51→17:47)
[2021-04-13 06:49] LABS: BASOPHILS % 0.8 % (0.0-2.0); EOSINOPHILS % 4.8 % (0.0-5.0); HEMATOCRIT. 31.6 % (36.0-48.0); HEMOGLOBIN. 10.3 g/dL (12.0-16.0); LYMPHOCYTES % 20.8 % (20.0-50.0); MEAN CORPUSCULAR VOLUME 86.1 fL (81.0-99.0); MEAN PLATELET VOLUME 7.2 fl (7.4-10.4); MONOCYTES % 8.9 % (2.0-8.0); NEUTROPHILS % 64.7 % (40.0-76.0); PLATELET 371 x1000/uL (130-400); RED BLOOD CELL COUNT 3.68 mill/uL (4.2-5.4); RED CELL DISTRIBUTION WIDTH 15.3 % (11.6-14.6)
[2021-04-13 06:52] LABS: PHOSPHORUS 3.8 mg/dL (2.5-4.9)
[2021-04-13] MEDS: PIPERACILLIN/TAZOBACTAM 2.25 G in DEXTROSE 5% WATER 50 ML IV SCH ×3 (06:53→21:53)
[2021-04-13] MEDS: DILTIAZEM HCL 30MG TABLET PO SCH ×3 (06:53→21:54)
[2021-04-13] MEDS: INSULIN LISPRO 100 UNITS/ML SUBCUT SCH ×4 (07:40→21:00)
[2021-04-13] MEDS: BLOOD SUGAR DIAGNOSTIC STRIP TEST SCH ×4 (07:48→21:15)
[2021-04-13 11:58] VITALS: BP 152/52
[2021-04-13] MEDS ORDERED: LACTULOSE 20G/30ML UDC PO PRN (14:30)
[2021-04-13 16:00] VITALS: BP 123/53
[2021-04-13 20:00] VITALS: BP 114/38
[2021-04-14] VITALS: BP 129/45
[2021-04-14 04:00] VITALS: BP 145/40
[2021-04-14] MEDS: VANCOMYCIN HCL 1000 MG/20 ML ORAL PO SCH ×2 (05:06→12:39)
[2021-04-14] MEDS: DILTIAZEM HCL 30MG TABLET PO SCH ×3 (05:06→22:22)
[2021-04-14] MEDS: PIPERACILLIN/TAZOBACTAM 2.25 G in DEXTROSE 5% WATER 50 ML IV SCH (05:09)
[2021-04-14] MEDS: BLOOD SUGAR DIAGNOSTIC STRIP TEST SCH ×4 (06:12→20:28)
[2021-04-14] MEDS: INSULIN LISPRO 100 UNITS/ML SUBCUT SCH ×4 (06:13→20:28)
[2021-04-14] MEDS: SODIUM CHLORIDE 0.9% 1,000 ML IV SCH (06:14)
[2021-04-14 07:13] LABS: BASOPHILS % 0.8 % (0.0-2.0); EOSINOPHILS % 4.6 % (0.0-5.0); HEMATOCRIT. 35.7 % (36.0-48.0); HEMOGLOBIN. 11.7 g/dL (12.0-16.0); LYMPHOCYTES % 19.9 % (20.0-50.0); MEAN CORPUSCULAR HEMOGLOBIN 28.3 pg (28.0-32.0); MEAN CORPUSCULAR VOLUME 86.4 fL (81.0-99.0); MEAN PLATELET VOLUME 7.4 fl (7.4-10.4); MONOCYTES % 5.9 % (2.0-8.0); NEUTROPHILS % 68.8 % (40.0-76.0); PLATELET 391 x1000/uL (130-400); RED BLOOD CELL COUNT 4.13 mill/uL (4.2-5.4)
[2021-04-14 07:33] LABS: PHOSPHORUS 2.3 mg/dL (2.5-4.9)
[2021-04-14 08:00] VITALS: BP 155/60
[2021-04-14 12:00] VITALS: BP 136/58
[2021-04-14 16:00] VITALS: BP 144/48
[2021-04-14 20:00] VITALS: BP 141/54
[2021-04-15] VITALS: BP 148/52
[2021-04-15 04:00] VITALS: BP 103/61
[2021-04-15] MEDS: DILTIAZEM HCL 30MG TABLET PO SCH ×4 (05:24→21:16)
[2021-04-15] MEDS: BLOOD SUGAR DIAGNOSTIC STRIP TEST SCH ×4 (06:30→21:00)
[2021-04-15] MEDS: INSULIN LISPRO 100 UNITS/ML SUBCUT SCH ×4 (06:30→21:00)
[2021-04-15 07:22] LABS: CHLORIDE 116 mEq/L (98-107)
[2021-04-15 07:26] LABS: BASOPHILS % 0.5 % (0.0-2.0); EOSINOPHILS % 4.7 % (0.0-5.0); HEMATOCRIT. 34.1 % (36.0-48.0); LYMPHOCYTES % 21.6 % (20.0-50.0); MEAN CORPUSCULAR HEMOGLOBIN 27.7 pg (28.0-32.0); MEAN CORPUSCULAR VOLUME 85.6 fL (81.0-99.0); MEAN PLATELET VOLUME 7.4 fl (7.4-10.4); MONOCYTES % 6.9 % (2.0-8.0); NEUTROPHILS % 66.3 % (40.0-76.0); PLATELET 363 x1000/uL (130-400); RED BLOOD CELL COUNT 3.98 mill/uL (4.2-5.4); RED CELL DISTRIBUTION WIDTH 15.1 % (11.6-14.6)
[2021-04-15 07:28] LABS: PHOSPHORUS 2.3 mg/dL (2.5-4.9)
[2021-04-15 08:00] VITALS: BP 106/50
[2021-04-15] MEDS ORDERED: POTASSIUM PHOS,M-BASIC-D-BASIC 15 MMOL in DEXT 5% WATER 245 ML IV SCH (11:30)
[2021-04-15 12:00] VITALS: BP 110/59
[2021-04-15 16:00] VITALS: BP 106/72
[2021-04-15] MEDS: SODIUM CHLORIDE 0.9% 1,000 ML IV SCH ×2 (18:25→21:17)
[2021-04-15 20:00] VITALS: BP 155/76
[2021-04-16] VITALS: BP 103/55
[2021-04-16 04:00] VITALS: BP 145/70
[2021-04-16] MEDS: DILTIAZEM HCL 30MG TABLET PO SCH (05:59)
[2021-04-16] MEDS: BLOOD SUGAR DIAGNOSTIC STRIP TEST SCH (05:59)
[2021-04-16] MEDS: INSULIN LISPRO 100 UNITS/ML SUBCUT SCH ×2 (06:00→12:40)
[2021-04-16 06:30] LABS: CHLORIDE 114 mEq/L (98-107)
[2021-04-16 06:52] LABS: PHOSPHORUS 3.2 mg/dL (2.5-4.9)
[2021-04-16 06:54] LABS: BASOPHILS % 0.7 % (0.0-2.0); EOSINOPHILS % 5.2 % (0.0-5.0); HEMATOCRIT. 34.7 % (36.0-48.0); HEMOGLOBIN. 11.1 g/dL (12.0-16.0); LYMPHOCYTES % 24.6 % (20.0-50.0); MEAN CORPUSCULAR HEMOGLOBIN 27.6 pg (28.0-32.0); MEAN CORPUSCULAR VOLUME 86.4 fL (81.0-99.0); MEAN PLATELET VOLUME 7.5 fl (7.4-10.4); MONOCYTES % 7.5 % (2.0-8.0); PLATELET 368 x1000/uL (130-400); RED BLOOD CELL COUNT 4.02 mill/uL (4.2-5.4)
[2021-04-16 08:00] VITALS: BP 128/46
[2021-04-16 12:00] VITALS: BP 112/55
[2021-04-16 13:48] VITALS: BP 128/68
[2021-04-16 16:00] VITALS: BP 147/46
== END 2021-04-16 17:46 | disposition home health service (06) | DRG 193 ==
LOC: ER 08:06 → MICUSO 11:45 → EDBEDREQ 11:51 → 8WST 19:18
PROVIDERS: ADMIT Internal Medicine; ATTEND Internal Medicine
PROC: 0W9930Z Drainage of Right Pleural Cavity with Drainage Device, Percutaneous Approach (ICD-10-PCS; principal; 2021-04-11)
DX: J18.9 Pneumonia, unspecified organism (principal); J96.90 Respiratory failure, unspecified, unspecified whether with hypoxia or hypercapnia; J90 Pleural effusion, not elsewhere classified; E87.2 Acidosis; N17.9 Acute kidney failure, unspecified; R18.8 Other ascites; I12.9 Hypertensive chronic kidney disease with stage 1 through stage 4 chronic kidney disease, or unspecified chronic kidney disease; E11.22 Type 2 diabetes mellitus with diabetic chronic kidney disease; D64.9 Anemia, unspecified; K74.60 Unspecified cirrhosis of liver; N18.2 Chronic kidney disease, stage 2 (mild); E78.00 Pure hypercholesterolemia, unspecified; E66.9 Obesity, unspecified; Z20.822 Contact with and (suspected) exposure to COVID-19; E78.5 Hyperlipidemia, unspecified; I71.9 Aortic aneurysm of unspecified site, without rupture; R19.7 Diarrhea, unspecified; Z82.49 Family history of ischemic heart disease and other diseases of the circulatory system; Z83.3 Family history of diabetes mellitus; Z79.899 Other long term (current) drug therapy; Z79.84 Long term (current) use of oral hypoglycemic drugs; Z68.35 Body mass index [BMI] 35.0-35.9, adult
CPT/HCPCS: 36415; 36600; 71045; 71250; 76705; 77002; 80048; 80053; 80061; 81003; 82270; 82375; 82550; 82553; 82570; 82784; 82805; 82962; 83036; 83605; 83735; 83880; 84100; 84300; 84484; 85025; 86334; 87426; 89055; 93005; 94640; 97162; 99152; 99153; 99291; C1729; C1769; C1893; J0456; J0696; J1650; J1815; J1940; J2405; J2543; J3010; J3370; J3490; J7030; J7040; J7060; L8514; P9047; A4315; G0500